=== PATIENT | male | born 1970 ===

== ENCOUNTER 2017-10-26 11:00 | Emergency (ER) | payer OTHER ==
[2017-10-26 11:04] VITALS: BMI 26.6
--- NOTE | 2017-10-26 12:39 | ED PDOC ---
Syncope/Near Syncope/Dizziness Time Seen by Provider: 10/26/17 11:22 Chief Complaint (Nursing): Dizziness/Lightheaded Chief Complaint (Provider): Dizziness History Per: Patient History/Exam Limitations: no limitations Onset/Duration Of Symptoms: Mins Current Symptoms Are (Timing): Gone Now Current Symptoms: None Possible Causative Factor(s): Lightheaded W/Standing Additional Complaint(s): 46 yo male with no medical problems presents after an episode of dizziness. PT was at work walking around when he began to feel dizziness. PT states it felt like he might pass out, no spinning. Pt states he felt his pulse and it felt very fast. Pt states he called 911 because he was concerned. Pt states he than felt SOB without chest pain, chest pressure, chest tightness. Pt states everything resolved on its own prior to coming to ER. Pt denies any current symptoms in ER. No similar in the past. No previous syncopal episodes. Past Medical History Reviewed: Historical Data, Nursing Documentation, Vital Signs Vital Signs: Last Vital Signs Temp 97.7 F 10/26/17 11:04 Pulse 89 10/26/17 11:04 Resp 16 10/26/17 11:04 BP 146/90 10/26/17 11:04 Pulse Ox 99 10/26/17 11:04 - Medical History PMH: No Chronic Diseases Other PMH: Last physical approx 1 year ago in [facility] - Surgical History Surgical History: No Surg Hx - Family History Family History: States: No Known Family Hx - Living Arrangements Living Arrangements: With Family - Allergies Allergies/Adverse Reactions: Allergies Allergy/AdvReac Type Severity Reaction Status Date / Time No Known Allergies Allergy Verified 10/26/17 11:35 Review of Systems ROS Statement: Except As Marked, All Systems Reviewed And Found Negative Constitutional: Negative for: Fever, Chills Cardiovascular: Negative for: Chest Pain Respiratory: Positive for: Shortness of Breath. Negative for: Cough Neurological: Positive for: Dizziness. Negative for: Altered Mental Status, Headache Physical Exam - Reviewed Nursing Documentation Reviewed: Yes Vital Signs Reviewed: Yes - Physical Exam Appears: Positive for: Well, Non-toxic, No Acute Distress Head Exam: Positive for: ATRAUMATIC, NORMAL INSPECTION, NORMOCEPHALIC Skin: Positive for: Normal Color, Warm, DRY Eye Exam: Positive for: EOMI, Normal appearance, PERRL ENT: Positive for: Normal ENT Inspection Neck: Positive for: Normal, Painless ROM Cardiovascular/Chest: Positive for: Regular Rate, Rhythm Respiratory: Positive for: CNT, Normal Breath Sounds Back: Positive for: Normal Inspection Extremity: Positive for: Normal ROM Neurologic/Psych: Positive for: Alert, Oriented - Laboratory Results Result Diagrams: 10/26/17 12:44 10/26/17 12:44 - ECG O2 Sat by Pulse Oximetry: 99 Medical Decision Making Medical Decision Making: Labs normal. Case discussed with Dr. Sauceda. Disposition - Clinical Impression Clinical Impression: Dizziness - Patient ED Disposition Is Patient to be Admitted: No Counseled Patient/Family Regarding: Diagnosis, Need For Followup - Disposition Referrals: [facility] [place] [Outside] Disposition: Routine/Home Disposition Time: 14:53 Condition: STABLE Instructions: Dizziness, Nonvertigo, (DC) Forms: [employer] (Hebrew)
--- NOTE | 2017-10-26 13:11 | RAD ---
HISTORY: dizziness, SOB COMPARISON: No prior. TECHNIQUE: Chest PA and lateral FINDINGS: LUNGS: No active pulmonary disease. PLEURA: No significant pleural effusion identified. No pneumothorax apparent. CARDIOVASCULAR: Normal. OSSEOUS STRUCTURES: Minimal rightward convexity mid to inferior thoracic spine VISUALIZED UPPER ABDOMEN: Normal. OTHER FINDINGS: None. IMPRESSION: No acute cardiopulmonary pathology.
[2017-10-26 13:13] LABS: ALB/GLOB RATIO 1.2 (1.0-2.1); ALBUMIN 4.6 g/dL (3.5-5.0); ALT/SGPT 195 U/L (21-72); AST/SGOT 80 U/L (17-59); BLOOD UREA NITROGEN 13 mg/dl (9-20); CALCIUM 9.7 mg/dL (8.4-10.2); GFR AFRICAN-AMERICAN > 60; GFR NON-AFRICAN AMERICAN > 60
[2017-10-26 13:17] LABS: BASO % 0.6 % (0.0-2.0); EOS % 0.4 % (0.0-4.0); HEMOGLOBIN 17.6 g/dL (12.0-18.0); LYMPH # 2.4 K/uL (1.0-4.3); LYMPH % 34.1 % (20.0-40.0); MEAN CELL VOLUME 84.2 fl (80.0-94.0); MEAN CORPUSCULAR HEMOGLOBIN 27.7 pg (27.0-31.0); MEAN CORPUSCULAR HGB CONC 32.9 g/dL (33.0-37.0); MEAN PLATELET VOLUME 7.3 fl (7.2-11.7); MONO # 0.5 K/uL (0.0-0.8); MONO % 6.5 % (0.0-10.0); NEUT # 4.1 K/uL (1.8-7.0); NEUT % 58.4 % (50.0-75.0); NRBC % 0.4 % (0.0-0.0); RBC 6.36 Mil/uL (4.40-5.90); WHITE BLOOD COUNT 7.1 K/uL (4.8-10.8)
--- NOTE | 2017-10-26 14:45 | CARD ---
APPROVED REPORT EKG Measurement Heart [id number] IN [id number] <Conclusion> Normal sinus rhythm Left posterior fascicular block Abnormal ECG
[2017-10-26 15:32] VITALS: BP 136/90; PULSE 90; RESP 17; TEMP 98.8; O2SAT 98
== END 2017-10-26 15:31 | disposition home or self-care (01) ==
LOC: H.ER 11:00
DX: R42 Dizziness and giddiness (principal)